=== PATIENT | male | born 1990 | race Caucasian/White ===

== ENCOUNTER 2021-11-25 10:42 | Emergency (ER) | payer BC ==
[~2021-11-25] VITALS: Ht 162.6 cm; Wt 49.9 kg
[2021-11-25 10:55] VITALS: BP 107/60
[2021-11-25] MEDS ORDERED: BENZOIN COMPOUND TINCT 60 ML BOTTLE ONE (11:07)
--- NOTE | 2021-11-25 11:25 | NUR ---
Patient discharged to home in stable condition. Written and verbal after care instructions given. Patient verbalizes understanding of instruction.
--- NOTE | 2021-11-25 11:56 | NUR ---
Urszula sinclair in ED - 11/25/21 at 1157 by RYAN Patient discharged to home in stable condition. Written and verbal after care instructions given. Patient verbalizes understanding of instruction.
== END 2021-11-25 11:57 | disposition home or self-care (01) ==
LOC: ER 10:47
DX: S61.012A Laceration without foreign body of left thumb without damage to nail, initial encounter (principal); Z60.2 Problems related to living alone; W26.0XXA Contact with knife, initial encounter; Y93.G3 Activity, cooking and baking; Y92.89 Other specified places as the place of occurrence of the external cause; Y99.8 Other external cause status